=== PATIENT | male | born 1995 | race Caucasian/White ===

== ENCOUNTER 2020-02-21 11:17 | Emergency (ER) | payer BC, OTHER ==
[2020-02-21 11:21] VITALS: BP 123/84; PULSE 89; RESP 18; TEMP 98.2
[2020-02-21] MEDS ORDERED: DIPH,PERTUS(ACELL)TETVAC-LF 0.5 ML VIAL IM ONE (11:22)
[2020-02-21] MEDS ORDERED: CIPROFLOXACIN HCL 500 MG TAB PO STA (11:29)
--- NOTE | 2020-02-21 11:42 | ED ---
Lower Extremity Injury HPI - General Chief Complaint: Extremity Injury, Lower Stated Complaint: L Foot Injury Time Seen by Provider: 02/21/20 11:22 Source: patient Mode of arrival: ambulatory Limitations: no limitations - History of Present Illness Initial Comments: Patient is a 24-year-old male presenting to emergency Department with a chief complaint of nail in the foot. Patient reports this occurred yesterday. States she was wearing flip-flops when the nail possibly went through the shoe and into the plantar aspect of the left foot near the first MTP joint. Patient reports slight swelling but no erythema in the region. States the area is tender to palpation. States he is concerned for infection and needs a tetanus shot. Denies any fevers or chills. - Related Data Home Medications Medication Instructions Recorded Confirmed Escitalopram [Lexapro] 5 mg PO DAILY 08/12/16 08/12/16 Previous Rx's Medication Instructions Recorded Colchicine [Colcrys] 0.6 mg PO BID #120 tab 08/15/16 Ibuprofen [Motrin] 600 mg PO TID #42 tab 08/15/16 Metoprolol Tartrate [Lopressor] 12.5 mg PO BID #60 tab 08/15/16 Nicotine 14Mg/24Hr Patch [Habitrol] 1 patch TRANSDERM DAILY #30 patch 08/15/16 Ciprofloxacin HCl [Cipro] 500 mg PO Q12HR #20 tablet 02/21/20 Allergies Allergy/AdvReac Type Severity Reaction Status Date / Time sulfamethoxazole Allergy Rash/Hives Verified 02/21/20 11:21 [From Bactrim] trimethoprim [From Bactrim] Allergy Rash/Hives Verified 02/21/20 11:21 Review of Systems ROS Statement: Those systems with pertinent positive or pertinent negative responses have been documented in the HPI. ROS Other: All systems not noted in ROS Statement are negative. Past Medical History Past Medical History: No Reported History History of Any Multi-Drug Resistant Organisms: None Reported Past Surgical History: No Surgical Hx Reported Past Anesthesia/Blood Transfusion Reactions: No Reported Reaction Past Psychological History: Anxiety Smoking Status: Current every day smoker Past Alcohol Use History: None Reported Past Drug Use History: Marijuana - Past Family History Mother Family Medical History: Coronary Artery Disease (CAD), Hypertension Father History Unknown: Yes General Exam Limitations: no limitations General appearance: alert, in no apparent distress Head exam: Present: atraumatic, normocephalic, normal inspection Eye exam: Present: normal appearance, PERRL, EOMI Pupils: Present: normal accommodation ENT exam: Present: normal exam, mucous membranes moist Neck exam: Present: normal inspection, full ROM Respiratory exam: Present: normal lung sounds bilaterally Cardiovascular Exam: Present: regular rate, normal rhythm, normal heart sounds Extremities exam: Present: full ROM, tenderness (Tenderness at the site of injury), normal capillary refill, other (+2 dorsalis pedis and posterior tibialis bilaterally.). Absent: normal inspection (Healing puncture wound on the plantar aspect of the left foot near the first MCP joint. Full range of motion in the toes. Mild swelling but no erythema.) Back exam: Present: normal inspection, full ROM Neurological exam: Present: alert, oriented X3 Psychiatric exam: Present: normal affect, normal mood Skin exam: Present: warm, dry, intact, normal color Course Vital Signs 02/21/20 11:19 Temperature 98.2 F Pulse Rate 89 Respiratory 18 Rate Blood Pressure 123/84 O2 Sat by Pulse 98 Oximetry Medical Decision Making - Medical Decision Making Patient is a 24-year-old male presenting to emergency Department with a chief complaint of nail in the foot. On exam patient has slight swelling at the site of injury but no signs of erythema or overlying skin changes. X-ray reveals no signs of foreign bodies at the puncture site. Patient started on Cipro and will be discharged with a 10 day course of Cipro. Patient also given a tetanus shot. Patient advised not to perform any physical exercise and/or exert himself physically due to the possible side effects on the tendons from the antibiotic. Return parameters were thoroughly discussed the patient was understanding and agreeable. Case discussed with physician. Disposition Clinical Impression: Nail wound of left foot Disposition: HOME SELF-CARE Condition: Stable Instructions (If sedation given, give patient instructions): Soft Tissue Foreign Body (ED) Additional Instructions: Follow-up with primary care. Return to emergency department if symptoms worsen. Take prescribed medication as directed. Avoid any physical exertion. Prescriptions: Ciprofloxacin HCl [Cipro] 500 mg PO Q12HR #20 tablet Is patient prescribed a controlled substance at d/c from ED?: No Referrals: Almaz Ann DO [Primary Care Provider] - 1-2 days Time of Disposition: 12:08
--- NOTE | 2020-02-21 11:47 | XR ---
EXAMINATION TYPE: XR foot limited LT DATE OF EXAM: 02/21/2020 CLINICAL HISTORY: Pain after injury, rule out foreign body. TECHNIQUE: Frontal and lateral images of the left foot are obtained. COMPARISON: None FINDINGS: There is no acute fracture/dislocation evident in the left foot. The joint spaces in the left foot appear within normal limits. The overlying soft tissue appears unremarkable without suspic ious linear radiodense or metallic foreign body identified to suggest metallic nail or nail fragment. IMPRESSION: As above.
== END 2020-02-21 12:15 | disposition home or self-care (01) ==
LOC: EC 11:17
DX: S91.232A Puncture wound without foreign body of left great toe with damage to nail, initial encounter (principal); F41.9 Anxiety disorder, unspecified; F17.200 Nicotine dependence, unspecified, uncomplicated; Z23 Encounter for immunization; Z79.899 Other long term (current) drug therapy; Z88.2 Allergy status to sulfonamides; Z88.1 Allergy status to other antibiotic agents; X58.XXXA Exposure to other specified factors, initial encounter; Y93.89 Activity, other specified
CPT/HCPCS: 90471; 90715; 99283

== ENCOUNTER 2021-06-30 13:24 | Emergency (ER) | payer OTHER ==
[2021-06-30 13:40] VITALS: TEMP 97.9
[2021-06-30] MEDS ORDERED: LORazepam 1 MG TAB PO STA (14:16)
[2021-06-30 14:55] VITALS: BP 131/87; RESP 16
[2021-06-30 15:01] LABS: Basophils % (A) 0 %; Eosinophils % (A) 1 %; HCT 52.2 % (39.0-53.0); HGB 17.6 gm/dL (13.0-17.5); Lymphocytes # (A) 0.8 k/uL (1.0-4.8); Lymphocytes % (A) 10 %; MCH 31.2 pg (25.0-35.0); MCHC 33.7 g/dL (31.0-37.0); MCV 92.6 fL (80.0-100.0); Mean Platelet Volume 7.4; Monocytes # (A) 0.5 k/uL (0-1.0); Monocytes % (A) 6 %; Neutrophils % (A) 83 %; Platelet Count 228 k/uL (150-450); RBC 5.64 m/uL (4.30-5.90); RDW 12.4 % (11.5-15.5); WBC 8.5 k/uL (3.8-10.6)
[2021-06-30 15:09] LABS: ALT 24 U/L (4-49); AST 30 U/L (17-59); African American GFR (CKD) >90 (>60 ml/min/1.73 sqM); Albumin 4.6 g/dL (3.5-5.0); Alcohol <10 mg/dL; Alkaline Phosphatase 85 U/L (38-126); Anion Gap 10 mmol/L; Blood Urea Nitrogen 10 mg/dL (9-20); Carbon Dioxide 24 mmol/L (22-30); Chloride 104 mmol/L (98-107); Glucose 97 mg/dL (74-99); Non-African American GFR(CKD) >90 (>60 ml/min/1.73 sqM); Potassium 4.2 mmol/L (3.5-5.1); Sodium 138 mmol/L (137-145); Total Bilirubin 0.5 mg/dL (0.2-1.3); Total Protein 7.6 g/dL (6.3-8.2)
[2021-06-30 15:10] LABS: Amphetamine Screen,Urine Not Detected (NotDetected); Barbiturate Screen,Urine Not Detected (NotDetected); Benzodiazepines Screen,Urine Not Detected (NotDetected); Cocaine Screen,Urine Not Detected (NotDetected); Methadone Screen, Urine Not Detected (NotDetected); Opiate Screen,Urine Not Detected (NotDetected); Oxycodone Screen, Urine Not Detected (NotDetected); Phencyclidine Screen,Urine Not Detected (NotDetected); Tricyclic Antidepressant,Urine Not Detected (NotDetected); Urn Cannabinoid Scrn Not Detected (NotDetected)
--- NOTE | 2021-06-30 15:11 | XR ---
EXAMINATION TYPE: XR chest 2V DATE OF EXAM: 06/30/2021 COMPARISON: 08/12/2016 HISTORY: 26 year-old male shortness of breath, dyspnea TECHNIQUE: PA and lateral views FINDINGS: The cardiomediastinal silhouette, aorta, and pulmonary vasculature are within normal limits. Lungs an d pleural spaces are clear. IMPRESSION: No acute cardiopulmonary process.
--- NOTE | 2021-06-30 16:00 | ED ---
General Adult HPI - General Chief complaint: Psychiatric Symptoms Stated complaint: Anxiety Time Seen by Provider: 06/30/21 13:41 Source: patient, RN notes reviewed, old records reviewed Mode of arrival: ambulatory Limitations: no limitations - History of Present Illness Initial comments: I evaluated the patient when he is placed in a room.Patient is a 26-year-old male with past medical history remarkable for daily alcohol abuse, anxiety, panic attacks who presents emergency Department complaining of multiple panic attacks over the last few days. Last week alcohol on Sunday. Has no history of alcohol withdrawals. Denies any illicit drug use otherwise. He presents emergency Department complaining of worsening anxiety and panic attacks. He do es take Xanax, which is not prescribed to him but he uses a friend's. States this somewhat helps with his attacks but he states that his panic attacks seem to be worse as he is concerned over his overall health and chronic alcohol use. He is interested in quitting and is not drinking since Sunday. Denies any hallucinations, shaking. States he was having some palpitations and shortness of breath earlier which resolved with Xanax use. He would like to speak with a specialist her therapist. He also wants basic labs to ensure that his drinking has not caused him to be in poor health. Denies any fevers, chills, sick contacts at this time. Denies any abdominal pain, nausea, vomiting. Denies any current shortness of breath or palpitations but states that was panic attacks her bad they are present. Denies any lightheadedness, weakness, numbness. He has no other acute complaint at this time. He denies any suicidal ideations, attempts complaints. Denies any homicidal ideations, attempts complaints. Denies any visual or auditory hallucinations. - Related Data Home Medications Medication Instructions Recorded Confirmed Xanax(Unknown) 1 tab PO DAILY PRN 06/30/21 06/30/21 Allergies Allergy/AdvReac Type Severity Reaction Status Date / Time sulfamethoxazole Allergy Rash/Hives Verified 06/30/21 15:34 [From Bactrim] trimethoprim [From Bactrim] Allergy Rash/Hives Verified 06/30/21 15:34 Review of Systems ROS Statement: Those systems with pertinent positive or pertinent negative responses have been documented in the HPI. Review of Systems: CONST: Denies fever EYES: Denies blurry vision ENT: Denies nasal congestion C/V: Denies Chest pain RESP: Denies shortness of breath GI: Denies abdominal pain : Denies dysuria SKIN: Denies rash. MSK: Denies joint pain. NEURO: Denies headache PSYCH: Denies suicidal and homicidal ideations/plans/attempts. Denies visual or auditory hallucinations. ROS Other: All systems not noted in ROS Statement are negative. Past Medical History Past Medical History: No Reported History History of Any Multi-Drug Resistant Organisms: None Reported Past Surgical History: No Surgical Hx Reported Past Anesthesia/Blood Transfusion Reactions: No Reported Reaction Past Psychological History: Anxiety Smoking Status: Current some day smoker Past Alcohol Use History: Abuse, Daily Past Drug Use History: Marijuana - Past Family History Mother Family Medical History: Coronary Artery Disease (CAD), Hypertension Father History Unknown: Yes General Exam - General Exam Comments Initial Comments: General: Appears in no acute distress. HEAD: Normal with no signs of head trauma. EYES: PERRLA, EOMI, conjunctiva normal, no discharge. ENT: Hearing grossly intact, normal oropharynx. RESPIRATORY: Clear breath sounds bilaterally. No wheezes, rales, or rhonchi. C/V: Regular rate and rhythm. S1 and S2 auscultated, no edema, peripheral pulses 2+ and intact throughout ABD: Abd is soft, nontender, nondistended EXT: Normal range of motion, no obvious deformity SKIN: No rashes or lesions observed on exposed skin. NEURO: Alert and oriented x 4. Cranial nerves II-XII intact. No focal sensory or strength deficits. No tremors. No tongue fasciculations. Does not appear to be in alcohol withdrawals. Limitations: no limitations Course Vital Signs 06/30/21 06/30/21 06/30/21 13:35 14:52 19:37 Temperature 97.9 F Pulse Rate 89 78 74 Respiratory 19 16 16 Rate Blood Pressure 162/92 131/87 O2 Sat by Pulse 98 98 98 Oximetry Medical Decision Making - Medical Decision Making Based on the patient's presentation and physical exam, does have a history of alcohol abuse as well as anxiety and panic attacks it seems. He is requesting to speak with psychiatry but also to obtain medical clearance due to his chronic alcohol use. Therefore we will obtain basic laboratory studies, EKG and chest x-ray screening tools. He was in agreement this plan. He'll be evaluated by psychiatry afterwards. He will likely be discharged home following this. Laboratory studies were remarkable for normal LFTs. Is not currently intoxicated. Remainder of the labs are unremarkable. Chest x-ray shows no acute cardio pulmonary process. EKG shows normal sinus rhythm with no signs of acute ischemia. On Reevaluation the patient remains asymptomatic. He is now medically cleared for evaluation by EPS. Patient was in agreement this plan. Disposition is pending EPS evaluation. Patient remained in the department for a total of 5 hours, and determined that he no longer wishes to wait for EPS. I reevaluated the patient and I do not believe that he is a danger to himself or to others. He denies any suicidal or homicidal ideations, attempts, plans. Also denies any hallucinations. Physical exam is unchanged. He has tolerated by mouth intake. I do believe it is reasonable for him to be discharged home at this time. I did advise that he follow-up with his physician, and he states he does have contact and fell. He will obtain resources from them. I instructed the patient to follow up with their PCP in the next 3 days. I explained that the patient should return to the emergency department if they experience any worsening symptoms. Strict return precautions were discussed with the patient. The patient expressed understanding of these instructions. I answered all questions that the patient had. The patient was discharged home in good condition with their prescriptions and follow up information. - Lab Data Result diagrams: 06/30/21 14:43 06/30/21 14:43 Lab Results 06/30/21 06/30/21 06/30/21 Range/Units 14:43 14:43 14:43 WBC 8.5 (3.8-10.6) k/uL RBC 5.64 (4.30-5.90) m/uL Hgb 17.6 H (13.0-17.5) gm/dL Hct 52.2 (39.0-53.0) % MCV 92.6 (80.0-100.0) fL MCH 31.2 (25.0-35.0) pg MCHC 33.7 (31.0-37.0) g/dL RDW 12.4 (11.5-15.5) % Plt Count 228 (150-450) k/uL MPV 7.4 Neutrophils % 83 % Lymphocytes % 10 % Monocytes % 6 % Eosinophils % 1 % Basophils % 0 % Neutrophils # 7.0 (1.3-7.7) k/uL Lymphocytes # 0.8 L (1.0-4.8) k/uL Monocytes # 0.5 (0-1.0) k/uL Eosinophils # 0.0 (0-0.7) k/uL Basophils # 0.0 (0-0.2) k/uL Sodium 138 (137-145) mmol/L Potassium 4.2 (3.5-5.1) mmol/L Chloride 104 (98-107) mmol/L Carbon Dioxide 24 (22-30) mmol/L Anion Gap 10 mmol/L BUN 10 (9-20) mg/dL Creatinine 0.97 (0.66-1.25) mg/dL Est GFR (CKD-EPI)AfAm >90 (>60 ml/min/1.73 sqM) Est GFR (CKD-EPI)NonAf >90 (>60 ml/min/1.73 sqM) Glucose 97 (74-99) mg/dL Calcium 10.0 (8.4-10.2) mg/dL Total Bilirubin 0.5 (0.2-1.3) mg/dL AST 30 (17-59) U/L ALT 24 (4-49) U/L Alkaline Phosphatase 85 (38-126) U/L Total Protein 7.6 (6.3-8.2) g/dL Albumin 4.6 (3.5-5.0) g/dL Urine Opiates Screen Not Detected (NotDetected) Ur Oxycodone Screen Not Detected (NotDetected) Urine Methadone Screen Not Detected (NotDetected) Ur Propoxyphene Screen Not Detected (NotDetected) Ur Barbiturates Screen Not Detected (NotDetected) U Tricyclic Antidepress Not Detected (NotDetected) Ur Phencyclidine Scrn Not Detected (NotDetected) Ur Amphetamines Screen Not Detected (NotDetected) U Methamphetamines Scrn Not Detected (NotDetected) U Benzodiazepines Scrn Not Detected (NotDetected) Urine Cocaine Screen Not Detected (NotDetected) U Marijuana (THC) Screen Not Detected (NotDetected) Serum Alcohol <10 mg/dL - EKG Data -: EKG Interpreted by Me EKG Comments: 12-lead Electrocardiogram Interpretation Note EKG was reviewed and interpreted by myself. 12-lead ECG performed at 1431 is interpreted by me as revealing normal sinus rhythm at a rate of 75 beats per minute. [place] is normal. IA interval is 156 seconds, QRS duration is 80 ms, QTc is 406 ms.. There is an isolated T-wave inversion in lead III. No acute ST segment changes to suggest ischemia at this time.. R wave progression across the precordium was satisfactory. By my interpretation this EKG is non-diagnostic for acute ischemia. Disposition Clinical Impression: Acute anxiety, Alcohol abuse Disposition: HOME SELF-CARE Condition: Good Instructions (If sedation given, give patient instructions): Abuse of Alcohol (ED), Anxiety (ED) Is patient prescribed a controlled substance at d/c from ED?: No Referrals: Almaz Ann DO [Primary Care Provider] - 1-2 days
[2021-06-30 19:38] VITALS: PULSE 74
== END 2021-06-30 19:38 | disposition home or self-care (01) ==
LOC: EC 13:24
DX: F41.9 Anxiety disorder, unspecified (principal); F10.10 Alcohol abuse, uncomplicated; F17.200 Nicotine dependence, unspecified, uncomplicated; Y90.0 Blood alcohol level of less than 20 mg/100 ml; Z88.1 Allergy status to other antibiotic agents; Z88.2 Allergy status to sulfonamides
CPT/HCPCS: 82075; 36415; 93005; 80053; 85025; 80306; 71046; 99285; G0480; 80320

== ENCOUNTER → 2023-06-05 | Outpatient (CLI) | payer OTHER ==
--- NOTE | 2023-06-05 13:10 | CT ---
EXAMINATION TYPE: CT abdomen pelvis wo con DATE OF EXAM: 06/05/2023 COMPARISON: None HISTORY: Frequent/painful urination. CT DLP: 381.3 mGycm Examination of the solid and hollow viscera is limited given the lack of contrast. FINDINGS: LUNG BASES: No evidence for nodule. No evidence for infiltrate. LIVER/GB: The gallbladder is unremarkable. No space-occupying hepatic lesion. PANCREAS: No pancreatic mass identified. No inflammatory process seen. SPLEEN: No evidence for splenomegaly. No intrasplenic lesions seen. ADRENALS: No adrenal nodules identified. No evidence for thickening. KIDNEYS: No evidence for renal mass. No nephrolithiasis. No hydronephrosis. Urinary bladder is decomp ressed and therefore limited in evaluation. BOWEL: Appendix has a normal appearance. No evidence of bowel obstruction. No inflammatory process. Lymph nodes: No evidence for adenopathy greater than 1 cm. Abdominal aorta: Atheromatous changes seen. No evidence for aneurysm. Genital organs: No significant abnormality. Other: No significant abnormality. IMPRESSION: 1. No significant abnormality appreciated.
== END | disposition home or self-care (01) ==
LOC: RADCTMAIN 12:31
PROVIDERS: ATTEND Urology
DX: R30.9 Painful micturition, unspecified (principal); R10.9 Unspecified abdominal pain
CPT/HCPCS: 74176

== ENCOUNTER → 2023-12-10 | Outpatient (CLI) | payer OTHER ==
[2023-12-10 20:34] LABS: Basophils # (A) 0.02 X 10*3/uL (0.00-0.10); Basophils % (A) 0.4 %; Eosinophils # (A) 0.12 X 10*3/uL (0.04-0.35); Eosinophils % (A) 2.2 %; HCT 48.6 % (39.6-50.0); HGB 16.2 g/dL (13.0-17.0); Lymphocytes # (A) 1.16 X 10*3/uL (0.90-5.00); MCH 29.3 pg (27.0-32.0); MCHC 33.3 g/dL (32.0-37.0); MCV 87.9 FL (80.0-97.0); Mean Platelet Volume 11.3 FL (9.5-12.2); Monocytes # (A) 0.44 X 10*3/uL (0.20-1.00); NRBC Per 100 WBC 0 X 10*3/uL (0.00-0.01); Neutrophils # (A) 3.77 X 10*3/uL (1.80-7.70); Neutrophils % (A) 68.2 %; Platelet Count 247 X 10*3/uL (140-440); RBC 5.53 X 10*6/uL (4.40-5.60); RDW 12.5 % (11.5-14.5); WBC 5.52 X 10*3/uL (4.50-10.00)
[2023-12-10 20:53] LABS: Erythrocyte Sedimentation Rate 7 mm/Hr (0-15)
[2023-12-10 21:56] LABS: ALT 64 U/L (10-49); AST 30 U/L (14-35); Albumin 4.6 g/dL (3.8-4.9); Albumin/Globulin Ratio 2.09 Ratio (1.60-3.17); Alkaline Phosphatase 79 U/L (41-126); BUN/Creat Ratio 22.38 Ratio (12.00-20.00); Blood Urea Nitrogen 17.9 mg/dL (9.0-27.0); C Reactive Protein <0.30 mg/dL (0.00-0.80); Calcium 9.9 mg/dL (8.7-10.3); Carbon Dioxide 21.5 mmol/L (21.6-31.8); Chloride 106 mmol/L (96-109); Globulin 2.2 g/dL (1.6-3.3); Glucose 97 mg/dL (70-110); Potassium 4.3 mmol/L (3.5-5.5); Sodium 139 mmol/L (135-145); Total Bilirubin <0.2 mg/dL (0.3-1.2); Total Protein 6.8 g/dL (6.2-8.2)
== END | disposition home or self-care (01) ==
LOC: LABWHC1 14:31
PROVIDERS: ATTEND Nurse Practitioner Family
DX: K62.89 Other specified diseases of anus and rectum (principal)
CPT/HCPCS: 36415; 80053; 83516; 85025; 85652; 86140

== ENCOUNTER 2023-12-21 12:31 | Day surgery (SDC) | payer OTHER ==
[2023-12-20 10:34] VITALS: BMI 28.1
[2023-12-21] MEDS: LACTATED RINGERS 1,000 ML IV SCH (12:57)
[2023-12-21 13:29] VITALS: TEMP 98.1
[2023-12-21] MEDS ORDERED: PROPOFOL 10 MG/ML 20 ML VIAL IV ONE (14:54)
[2023-12-21] MEDS ORDERED: LIDOCAINE 1% INJ 10MG/ML (20 ML MDV) ONE (14:54)
--- NOTE | 2023-12-21 15:16 | P.PCN ---
Date of Procedure: 12/21/23 Procedure(s) Performed: BRIEF HISTORY: Patient is a 28-year-old pleasant white male scheduled for an elective colonoscopy as a part of evaluation of lower abdominal pain and alternating diarrhea and constipation for the last several months duration.also has been complaining of intermittent rectal pain. PROCEDURE PERFORMED: Colonoscopy. PREOPERATIVE DIAGNOSIS: Lower abdominal pain and change in bowel habits/rectal pain. IV sedation per Anesthesia. PROCEDURE: After informed consent was obtained, the patient, was brought into the endoscopy unit. IV sedation was administered by Anesthesia under continuous monitoring. Digital rectal examination was normal. Initially the Olympus CF-160 flexible video colonoscope was then inserted in the rectum, gradually advanced into the cecum without any difficulty. Careful examination was performed as the scope was gradually being withdrawn. Ileocecal valve and the appendiceal orifice were visualized and appeared normal. Prep was excellent. Mucosa of the cecum, ascending colon, transverse colon, descending colon, sigmoid colon, and rectum appeared normal. Retroflexion was performed in the rectum and no lesions were seen. The patient tolerated the procedure well. IMPRESSION: Normal-appearing colon from rectum to cecum no evidence of colorectal neoplasia. RECOMMENDATIONS: Findings of this examination were discussed with the patient as well as his family. He was advised to be a high-fiber diet, take fiber supplements a regular basis and regulate bowel movements.
[2023-12-21 15:54] VITALS: BP 127/82; PULSE 71; RESP 16
== END 2023-12-21 15:44 | disposition home or self-care (01) ==
LOC: ORWHC2ENDO 12:31
PROVIDERS: ATTEND Internal Medicine Gastroenterology
DX: K62.89 Other specified diseases of anus and rectum (principal); J44.9 Chronic obstructive pulmonary disease, unspecified; F12.90 Cannabis use, unspecified, uncomplicated; F17.290 Nicotine dependence, other tobacco product, uncomplicated; Z79.1 Long term (current) use of non-steroidal anti-inflammatories (NSAID)
CPT/HCPCS: 45378; J2001; J2704